=== PATIENT | male | born 1955 | race Caucasian/White ===

== ENCOUNTER 2020-10-29 16:49 | Emergency (ER) | payer SELFPAY ==
[~2020-10-29 16:49] MED LIST: BETAPACE 80MG T80 MG PO; ELIQUIS 5 MG TAB5 MG PO; LASIX40 MG PO; LIPITOR80 MG PO; TOPROL XL50 MG PO
== END 2020-10-29 16:52 | disposition left against medical advice (07) ==
LOC: ER1 16:49
DX: Z53.21 Procedure and treatment not carried out due to patient leaving prior to being seen by health care provider (principal)

== ENCOUNTER 2020-11-11 12:15 | Inpatient (IN) | payer MEDICARE, MEDICAID ==
[~2020-11-11] VITALS: Ht 182.9 cm; Wt 72.6 kg
[2020-11-11 13:13] LABS: HEMOGLOBIN 13.5 gm/dl (14.0-17.5); RED BLOOD COUNT 3.37 M/UL (4.20-5.50); WHITE BLOOD COUNT 5.5 K/UL (4.5-11.0)
[2020-11-11 13:33] LABS: BUN/CREATININE RATIO 5 (0-10)
[2020-11-11] MEDS ORDERED: ASPIRIN EC81 MG PO (18:05)
[2020-11-11] MEDS ORDERED: IPRAT-ALBUT 0.5-3 ML INH (18:06)
[2020-11-11] MEDS ORDERED: NEURONTIN300 MG PO (21:06)
[2020-11-11] MEDS ORDERED: HYDROCODON-ACE1 EAC6 PO (21:06)
[2020-11-11] MEDS ORDERED: VENTOLIN HFA 66.7 GM INH (21:08)
[2020-11-11] MEDS ORDERED: VITAMIN D325 MC6 PO (21:09)
[2020-11-12 03:37] LABS: HEMOGLOBIN 13.5 gm/dl (14.0-17.5); RED BLOOD COUNT 3.28 M/UL (4.20-5.50)
[2020-11-12 03:38] LABS: WHITE BLOOD COUNT 3.9 K/UL (4.5-11.0)
[2020-11-12 03:58] LABS: BUN/CREATININE RATIO 6 (0-10)
[2020-11-12 08:46] LABS: ADENOVIRUS F 40/41 Not Detected (Negative); ASTROVIRUS Not Detected (Negative); CAMPYLOBACTER Not Detected (Negative); CLOSTRIDIUM DIFFICILE TOX A/B Not Detected (Negative); CRYPTOSPORIDIUM Not Detected (Negative); E.COLI 0157 Not Detected (Negative); ENTAMOEBA HISTOLYTICA Not Detected (Negative); ENTEROAGGREGATIVE E.COLI (EAEC Not Detected (Negative); ENTEROPATHOGENIC E.COLI (EPEC) Not Detected (Negative); ENTEROTOXIGENIC E.COLI (ETEC) Not Detected (Negative); GIARDIA LAMBLIA Not Detected (Negative); NOROVIRUS GI/GII Not Detected (Negative); PLESIOMONAS SHIGELLOIDES Not Detected (Negative); ROTOVIRUS A Not Detected (Negative); SALMONELLA Not Detected (Negative); SAPOVIRUS Not Detected (Negative); SHIG/ENTEROINVAS.ECOLI (EIEC) Not Detected (Negative); SHIGA-LIK TOX.PRO.E.COLI (STEC Not Detected (Negative); VIBRIO Not Detected (Negative); VIBRIO CHOLERAE Not Detected (Negative); YERSINIA ENTEROCOLITICA Not Detected (Negative)
[2020-11-13 03:40] LABS: BUN/CREATININE RATIO 4 (0-10)
== END 2020-11-13 16:55 | disposition home or self-care (01) | DRG 640 ==
LOC: ER1 12:15 → CCU 14:06 → CDU 14:06 → CCU 18:12 → PROG CARE 11-12 20:57
PROVIDERS: Emergency Medicine; Internal Medicine; Physician Assistant Medical; ADMIT Internal Medicine
PROC: 3E033XZ Introduction of Vasopressor into Peripheral Vein, Percutaneous Approach (ICD-10-PCS; principal; 2020-11-11)
DX: E86.0 Dehydration (principal); R57.1 Hypovolemic shock; R19.7 Diarrhea, unspecified; E87.1 Hypo-osmolality and hyponatremia; E86.1 Hypovolemia; D50.9 Iron deficiency anemia, unspecified; F17.210 Nicotine dependence, cigarettes, uncomplicated; Z20.822 Contact with and (suspected) exposure to COVID-19; I48.0 Paroxysmal atrial fibrillation; I50.9 Heart failure, unspecified; K40.90 Unilateral inguinal hernia, without obstruction or gangrene, not specified as recurrent; I11.0 Hypertensive heart disease with heart failure; K21.9 Gastro-esophageal reflux disease without esophagitis; N40.0 Benign prostatic hyperplasia without lower urinary tract symptoms; J43.9 Emphysema, unspecified; M47.896 Other spondylosis, lumbar region; D69.6 Thrombocytopenia, unspecified; F10.10 Alcohol abuse, uncomplicated; Z79.01 Long term (current) use of anticoagulants; Z99.81 Dependence on supplemental oxygen; Z82.49 Family history of ischemic heart disease and other diseases of the circulatory system
CPT/HCPCS: 36415; 36600; 70450; 71045; 80048; 80053; 81001; 82533; 82550; 82553; 82607; 82746; 82803; 83605; 83690; 83735; 83874; 83880; 84484; 85025; 87040; 87507; 93005; 93270; 94640; 94664; 94760; 96374; 99285; J1650; J2543; J3475; J7030; Q9965; U0002

== ENCOUNTER 2021-01-21 16:22 | Inpatient (IN) | payer MEDICARE ==
[~2021-01-21] VITALS: Ht 182.9 cm; Wt 83.9 kg
[~2021-01-21 16:22] MED LIST changes: +ASPIRIN EC81 MG PO; +HYDROCODON-ACE1 EAC6 PO; +IPRAT-ALBUT 0.5-3 ML INH; +NEURONTIN300 MG PO; +VENTOLIN HFA 66.7 GM INH; +VITAMIN D325 MC6 PO
[2021-01-21 17:05] LABS: HEMOGLOBIN 14.2 gm/dl (14.0-17.5); RED BLOOD COUNT 3.51 M/UL (4.20-5.50); WHITE BLOOD COUNT 6.4 K/UL (4.5-11.0)
[2021-01-21 17:35] LABS: BUN/CREATININE RATIO 15 (0-10)
[2021-01-22] MEDS ORDERED: ESCITALOPRAM OXA5 MG PO (03:50)
[2021-01-22] MEDS ORDERED: DILTIAZEM 24HR120 M1 PO (03:50)
[2021-01-22] MEDS ORDERED: ELIQUIS5 MG PO (03:50)
[2021-01-22] MEDS ORDERED: ANORO ELLIPTA1 EACH INH (03:51)
[2021-01-22] MEDS ORDERED: BETAPACE 80MG T80 MG PO (03:51)
[2021-01-22 03:52] LABS: HEMOGLOBIN 13.9 gm/dl (14.0-17.5); RED BLOOD COUNT 3.43 M/UL (4.20-5.50)
[2021-01-22] MEDS ORDERED: ALBUTEROL2.5 MG/3 M INH (03:52)
[2021-01-22 04:03] LABS: WHITE BLOOD COUNT 4.3 K/UL (4.5-11.0)
[2021-01-22 04:18] LABS: BUN/CREATININE RATIO 14 (0-10)
--- NOTE | 2021-01-22 12:11 | NUR ---
IN ER @[address] SILVA ABOUT HR NO ANSWER NO CALL BACK @[address] SILVA ABOUT HR NO ANSWER NO CALL BACK @0803 DR. PATHAK CALLED AND NOTIFIED OF CONSULT, ALSO NOTIFIED PT HR HAD BEEN SR 120'S DURING THE NIGHT, HEART RATE IS NOW SR 90'S-170'S, PT IS ALSO GOING IN AND OUT OF AFIB, AFLUTTER WITH SOME RUNS OF V-TACH 3-4 BEATS. ORDERS RECIEVED AND PLACED, @0815 LISA HORNER ON FLOOR BEFORE STARTING CARDIZEM DRIP OR BOLUS INSTRUCTED TO HOLD. PT HR LOW 100'S,
[2021-01-23 05:57] LABS: HEMOGLOBIN 12.6 gm/dl (14.0-17.5); RED BLOOD COUNT 3.12 M/UL (4.20-5.50); WHITE BLOOD COUNT 4.8 K/UL (4.5-11.0)
[2021-01-23 06:20] LABS: BUN/CREATININE RATIO 16 (0-10)
--- NOTE | 2021-01-23 15:17 | NUR ---
TOOK OVER FOR CHRISTIAN CHERRY AT 1400. PT RESTING IS HIS BED WITH NO NEW COMPLAINTS. ASSESSMENT OF THE PT IS CONSISTENT WITH THE AM ASSESSMENT PERFORMED BY CHRISTIAN. WILL CONTINUE TO MONITOR.
[2021-01-24 03:20] LABS: HEMOGLOBIN 12.9 gm/dl (14.0-17.5); RED BLOOD COUNT 3.18 M/UL (4.20-5.50); WHITE BLOOD COUNT 5.5 K/UL (4.5-11.0)
[2021-01-24 03:54] LABS: BUN/CREATININE RATIO 20 (0-10)
--- NOTE | 2021-01-25 18:56 | NUR ---
RESPIRATORY CARE NOTE. PT O2 SAT % AT REST WITHOUT HIS O2 PT DESAT TO 88% WHILE AT REST. WILL CONTINUE TO MONITOR FOR POSSIBLE DISCHARGE HOME O2 TO BE PROVIDED.
[2021-01-26 02:49] LABS: HEMOGLOBIN 11.7 gm/dl (14.0-17.5); RED BLOOD COUNT 2.9 M/UL (4.20-5.50)
[2021-01-26 02:59] LABS: WHITE BLOOD COUNT 4.1 K/UL (4.5-11.0)
[2021-01-26 03:25] LABS: BUN/CREATININE RATIO 18 (0-10)
--- NOTE | 2021-01-26 15:45 | NUR ---
PT O2 SAT 87 PERCENT ON ROOM AIR
[2021-01-27] MEDS ORDERED: VITAMIN B-1100 M1 PO (10:42)
[2021-01-27] MEDS ORDERED: PROZAC 20 MG CA20 MG PO (10:42)
[2021-01-27] MEDS ORDERED: FOLIC ACID 1 MG1 MG PO (10:42)
== END 2021-01-27 13:42 | disposition home health service (06) | DRG 896 ==
LOC: ER1 16:22 → CDU 18:45 → MED SURG 4 18:45
PROVIDERS: Emergency Medicine; ADMIT Internal Medicine
PROC: B24BZZ4 Ultrasonography of Heart with Aorta, Transesophageal (ICD-10-PCS; principal; 2021-01-22)
DX: F10.259 Alcohol dependence with alcohol-induced psychotic disorder, unspecified (principal); E43 Unspecified severe protein-calorie malnutrition; G93.49 Other encephalopathy; I47.1 Supraventricular tachycardia; Z20.822 Contact with and (suspected) exposure to COVID-19; J44.9 Chronic obstructive pulmonary disease, unspecified; F17.210 Nicotine dependence, cigarettes, uncomplicated; F32.9 Major depressive disorder, single episode, unspecified; K21.9 Gastro-esophageal reflux disease without esophagitis; N40.0 Benign prostatic hyperplasia without lower urinary tract symptoms; I10 Essential (primary) hypertension; I48.0 Paroxysmal atrial fibrillation; M47.896 Other spondylosis, lumbar region; I25.10 Atherosclerotic heart disease of native coronary artery without angina pectoris; E87.6 Hypokalemia; F10.229 Alcohol dependence with intoxication, unspecified; K40.90 Unilateral inguinal hernia, without obstruction or gangrene, not specified as recurrent; D69.6 Thrombocytopenia, unspecified; D50.9 Iron deficiency anemia, unspecified; I48.91 Unspecified atrial fibrillation; R53.81 Other malaise; Z99.81 Dependence on supplemental oxygen; Z79.01 Long term (current) use of anticoagulants; Z79.82 Long term (current) use of aspirin; Z82.49 Family history of ischemic heart disease and other diseases of the circulatory system; Z68.23 Body mass index [BMI] 23.0-23.9, adult
CPT/HCPCS: ECHO; 36415; 36600; 71045; 74230; 80048; 80053; 82140; 82550; 82553; 82803; 83735; 83874; 83880; 84132; 84439; 84443; 84484; 85025; 85610; 85730; 87040; 92526; 92610; 92611-GN; 93005; 93306; 94640; 94760; 96374; 96375; 96376; 97161; 99285; C9113; G0378; G0480; J1160; J1940; J2060; J3411; J3475; J3480; J7030; U0002

== ENCOUNTER → 2021-07-28 | Outpatient (CLI) | payer MEDICARE ==
[~2021-07-28] MED LIST changes: +ALBUTEROL2.5 MG/3 M INH; +ANORO ELLIPTA1 EACH INH; +DILTIAZEM 24HR120 M1 PO; +ELIQUIS5 MG PO; +ESCITALOPRAM OXA5 MG PO; +FOLIC ACID 1 MG1 MG PO; +MIDODRINE HCL5 MG PO; +PROZAC 20 MG CA20 MG PO; +VITAMIN B-1100 M1 PO
== END ==
LOC: HEART 5 14:58
DX: J44.9 Chronic obstructive pulmonary disease, unspecified (principal)
CPT/HCPCS: 94060; 94729

== ENCOUNTER 2021-07-29 16:40 | Emergency (ER) | payer MEDICARE ==
[~2021-07-29 16:40] MED LIST changes: -MIDODRINE HCL5 MG PO
[2021-07-29 19:20] LABS: HEMOGLOBIN 15.5 gm/dl (14.0-17.5); RED BLOOD COUNT 4.02 M/UL (4.20-5.50); WHITE BLOOD COUNT 6.2 K/UL (4.5-11.0)
[2021-07-29 19:58] LABS: BUN/CREATININE RATIO 5 (0-10)
[2021-07-29] MEDS ORDERED: MIDODRINE HCL5 MG PO (23:30)
== END 2021-07-29 23:59 | disposition home or self-care (01) ==
LOC: ER1 16:40
PROVIDERS: Physician Assistant
DX: R53.1 Weakness (principal); I95.1 Orthostatic hypotension; J44.9 Chronic obstructive pulmonary disease, unspecified; I10 Essential (primary) hypertension; I48.91 Unspecified atrial fibrillation; Z79.01 Long term (current) use of anticoagulants; F17.200 Nicotine dependence, unspecified, uncomplicated
CPT/HCPCS: 71045; 80053; 81001; 82550; 82553; 83874; 84484; 85025; 93005; 99285; G0480; J7030

== ENCOUNTER 2021-07-30 19:39 | Emergency (ER) | payer MEDICARE ==
[~2021-07-30 19:39] MED LIST changes: +MIDODRINE HCL5 MG PO
== END 2021-07-30 19:57 | disposition left against medical advice (07) ==
LOC: ER1 19:39
DX: Z53.21 Procedure and treatment not carried out due to patient leaving prior to being seen by health care provider (principal)

== ENCOUNTER → 2021-08-25 | Outpatient (CLI) | payer OTHER, MEDICARE | LOC: KOH-I 15:22 | DX: F17.211 Nicotine dependence, cigarettes, in remission (principal); J43.9 Emphysema, unspecified; I25.10 Atherosclerotic heart disease of native coronary artery without angina pectoris | CPT/HCPCS: 71271 ==